=== PATIENT | female | born 1950 | race African-American/Black ===

== ENCOUNTER 2017-08-24 16:14 | Outpatient (CLI) | payer MEDICARE | END 2017-08-24 16:15 | disposition home or self-care (01) | LOC: BICRAD 16:14 | PROVIDERS: ATTEND Podiatrist | DX: M25.572 Pain in left ankle and joints of left foot (principal) ==

== ENCOUNTER 2018-05-24 14:37 | Outpatient (CLI) | payer MEDICARE | END 2018-05-24 14:38 | disposition home or self-care (01) | LOC: BICMAMMO 14:37 | PROVIDERS: ATTEND Specialist | DX: Z12.31 Encounter for screening mammogram for malignant neoplasm of breast (principal) | CPT/HCPCS: 77063; 77067 ==

== ENCOUNTER 2019-03-21 09:54 | Outpatient (CLI) | payer MEDICARE ==
--- NOTE | 2019-03-21 13:49 | RAD ---
RIGHT KNEE 4 VIEWS: HISTORY: Right knee pain. FINDINGS: Comparison is made with the exam of 07/31/2015. Interval worsening of osteoarthritic changes is noted. No acute fracture, dislocation, or bony destr uction is seen. There is some joint space narrowing, osteophyte formation, and chondrocalcinosis. IMPRESSION: Right knee osteoarthritis with interval worsening since 07/31/2015. POS: [facility]
== END 2019-03-21 09:55 | disposition home or self-care (01) ==
LOC: BICRAD 09:54
PROVIDERS: ATTEND Specialist
DX: M17.11 Unilateral primary osteoarthritis, right knee (principal); M25.561 Pain in right knee

== ENCOUNTER 2019-05-25 08:45 | Outpatient (CLI) | payer MEDICARE ==
--- NOTE | 2019-05-25 09:24 | MMO ---
Bilateral MAMMO Bilat Screen [facility]. CLINICAL HISTORY: Patient is 68 years old and is seen for screening. The patient has no family history of breast cancer. The patient has no personal history of cancer. VIEWS: The views performed were: bilateral craniocaudal with tomosynthesis and bilateral mediolateral oblique with tomosynthesis. FILMS COMPARED: The present examination has been compared to prior imaging studies performed at [facility] on 12/27/2014, 01/21/2016, 01/22/2017 and 05/24/2018. This study has been interpreted with the assistance of computer-aided detection. MAMMOGRAM FINDINGS: The breasts are heterogeneously dense, which could obscure a lesion on mammography. There are no suspicious masses, suspicious calcifications, or new areas of architectural distortion. IMPRESSION: THERE IS NO MAMMOGRAPHIC EVIDENCE OF MALIGNANCY. A ROUTINE FOLLOW-UP MAMMOGRAM IN 1 YEAR IS RECOMMENDED. THE RESULTS OF THIS EXAM WERE SENT TO THE PATIENT. ACR BI-RADS Category 1 - Negative MAMMOGRAPHY NOTE: 1. A negative mammogram report should not delay a biopsy if a dominant of clinically suspicious mass is present. 2. Approximately 10% to 15% of breast cancers are not detected by mammography. 3. Adenosis and dense breasts may obscure an underlying neoplasm. Reported by: OMKAR RDZ MD Electonically Signed: [id number]
== END 2019-05-25 08:46 | disposition home or self-care (01) ==
LOC: BICMAMMO 08:45
PROVIDERS: ATTEND Specialist
DX: Z12.31 Encounter for screening mammogram for malignant neoplasm of breast (principal)
CPT/HCPCS: 77063; 77067

== ENCOUNTER 2019-09-30 08:23 | Outpatient (CLI) | payer MEDICARE ==
--- NOTE | 2019-09-30 08:45 | RAD ---
Exam: XR Foot Lt 3 View STANDARD HISTORY: Left foot pain for 2 weeks. COMPARISON: 08/25/2019 FINDINGS: Metatarsus primus varus and hallux valgus is again noted. Mild osteoarthritis is seen involving the f irst metatarsal phalangeal joint similar to prior exam. Mild degenerative changes are seen involving the midfoot. No acute fracture, dislocation, or other acute osseous abnormality is identified. IMPRESSION: Mild scattered osteoarthritis, but no acute osseous abnormality is seen involving the left foot. View s of the left foot are stable compared to prior exam.
== END 2019-09-30 08:24 | disposition home or self-care (01) ==
LOC: BICRAD 08:23
PROVIDERS: ATTEND Nurse Practitioner Family
DX: M79.672 Pain in left foot (principal); M19.072 Primary osteoarthritis, left ankle and foot

== ENCOUNTER 2021-11-21 10:23 | Outpatient (CLI) | payer MEDICARE | END 2021-11-21 10:24 | disposition home or self-care (01) | LOC: BICMAMMO 10:23 | PROVIDERS: ATTEND Specialist | DX: Z12.31 Encounter for screening mammogram for malignant neoplasm of breast (principal) | CPT/HCPCS: 77063; 77067 ==

== ENCOUNTER 2023-04-09 06:42 | Emergency (ER) | payer MEDICARE ==
[2023-04-09 08:24] LABS: #Monocytes 0.4 thou/uL (0.11-0.59); #Neutrophils 4.5 thou/uL (1.40-6.50); %Basophils 0.2 % (0.0-1.0); %Lymphocytes 7.3 % (21.0-51.0); %Monocytes 7.5 % (0.0-10.0); %Neutrophils 84.6 % (42.0-75.0); Hematocrit 34.4 % (36.0-47.0); Hemoglobin 11.4 g/dL (12.0-16.0); Mean Corpuscular HGB CONC 33.1 g/dL (32.0-36.0); Mean Corpuscular Hemoglobin 29.8 pg (27.0-31.0); Mean Corpuscular Volume 89.8 fl (78.0-98.0); Mean Platelet Volume 10.8 fL (7.4-10.4); Platelet Count 152 10x3/uL (130-400); RBC Distribution Width 13.1 % (11.5-14.5); Red Blood Cell (RBC) Count 3.83 mill/uL (4.20-5.40); White Blood Cell (WBC) Count 5.3 10x3/uL (4.8-10.8)
[2023-04-09] MEDS ORDERED: Lidocaine 1% PF 5 ML VIAL ONE ×2 (08:29→08:34)
[2023-04-09] MEDS ORDERED: Benzonatate 100 MG CAP ONE (08:29)
[2023-04-09] MEDS ORDERED: cefTRIAXone (ROCEPHIN) 2 GM VIAL ONE (08:30)
[2023-04-09 08:36] LABS: SARS-CoV-2 NAA Rapid Test Not Detected (NotDetected)
[2023-04-09 08:49] LABS: ALT (SGPT) 7 U/L (8-55); AST (SGOT) 17 U/L (5-34); Albumin 3.9 g/dL (3.4-4.8); Alkaline Phosphatase 65 U/L (40-110); Anion Gap 11 mmol/L (10-20); BUN (Urea Nitrogen) 14 mg/dL (9.8-20.1); Bilirubin, Total 0.5 mg/dL (0.2-1.2); Calc. Creatinine Clearance 0 mL/min (70-130); Calcium 9.3 mg/dL (7.8-10.44); Carbon Dioxide 29 mmol/L (23-31); Chloride 100 mmol/L (98-107); Estimated GFR 77; Globulin 2.2 g/dL (2.4-3.5); Glucose 145 mg/dL (83-110); Potassium 3.6 mmol/L (3.5-5.1); Protein, Total 6.1 g/dL (5.8-8.1); Sodium 136 mmol/L (136-145)
== END 2023-04-09 09:55 | disposition home or self-care (01) ==
LOC: ERS 06:42
DX: J18.1 Lobar pneumonia, unspecified organism (principal); E11.9 Type 2 diabetes mellitus without complications; E78.5 Hyperlipidemia, unspecified; I10 Essential (primary) hypertension; Z20.822 Contact with and (suspected) exposure to COVID-19
CPT/HCPCS: 0240U; 71045; 80053; 83605; 85025; 96374; 99283; 36415; J0696